=== PATIENT | male | born 1950 | race Caucasian/White ===

== ENCOUNTER 2019-02-01 15:07 | Observation (INO) | payer MEDICARE ==
--- NOTE | 2019-02-01 15:42 | ED ---
Back Pain - HPI Summary HPI Summary: This patient is a 68 year old M presenting to [facility] by EMS transferred from [facility] ED accompanied by his with a chief complaint of worsening right lower back pain since 01/27/19 after lifting a heavy suitcase and dx of paracentral HNP at L4 L5 and mass effect on L5 descending nerve root on MRI in [place]. Pt denies any hx of trauma. On 01/30/19, he could not stand/ ambulate and when he stands pain shoots down his leg. Pt reports right leg weakness and right foot numbness and tingling. He has had no bowel or bladder incontinence. His pain was unrelieved with bedrest, ibuprofen and use of crutches at home. Pt has PMHx of degenrative disk disease and a bulging disk at L4 L5 (with hx 3 intrathecal injections in 2014 at [facility], and the third one helped), kidney stones, [place], prostate cancer (radiation) 2013, HLD. Pt takes atorvastatin daily and ASA 81mg daily. This pt was transferred via EMS from [place] emergency department by Keira Macias NP after discussion and acceptance by Dr. Eden, and Dr. Crawford, Pt had morphine x 3 in [place] ED without relief. He is transferred for further evaluation and treatment by neurosurgery, Dr. Crawford. Vital signs while in room: HR 61 bpm, BP 135/78, O2 sat 98% Home Medications Medication Instructions Recorded Confirmed Type Aspirin [Ecotrin] 81 mg PO DAILY 02/01/19 02/01/19 History Atorvastatin* [Lipitor 20 MG*] 20 mg PO DAILY 02/01/19 02/01/19 History - History of Current Complaint Chief Complaint: EDBackInjuryPain Stated Complaint: BACK PAIN, NEURO PER EMS Time Seen by Provider: 02/01/19 15:20 Hx Obtained From: Patient, EMS, Other: - Keira Macias NP at [place] ED Onset/Duration: Gradual Onset, Lasting Days, Still Present Onset/Duration: Started Days Ago, Atraumatic, Still Present, Worse Since - Timing: Constant Back Pain Location: Is Discrete @ - rigth lower back Severity Initially: Severe Severity Currently: Severe Pain Intensity: 8 Pain Scale Used: 0-10 Numeric Character: Sharp, Burning Aggravating Symptom(s): Movement, Lifting, Bending, Walking Alleviating Symptom(s): Rest, OTC Meds, Other - crutches Associated Signs And Symptoms: Positive: Weakness, Numbness, Tingling, Pain with Weight Bearing. Negative: Bladder Incontinence, Bowel Incontinence - Allergies/Home Medications Allergies/Adverse Reactions: Allergies Allergy/AdvReac Type Severity Reaction Status Date / Time No Known Allergies Allergy Verified 02/01/19 15:13 Home Medications: Home Medications Aspirin [Ecotrin] 81 mg PO DAILY 02/01/19 [History Confirmed 02/01/19] Atorvastatin* [Lipitor 20 MG*] 20 mg PO DAILY 02/01/19 [History Confirmed ] PMH/Surg Hx/FS Hx/Imm Hx Previously Healthy: No Cardiovascular History: Reports: Hx Hypercholesterolemia, Hx Myocardial Infarction - [facility] in [place] 2015 History: Reports: Hx Kidney Stones, Other Problems/Disorders - prostate CA Musculoskeletal History: Reports: Hx Back Problems - s/p intrathecal injections 2014 at [facility] History: Denies: Hx Deafness - Cancer History Cancer Type, Location and Year: prostate cancer, 2013 Hx Radiation Therapy: Yes - Surgical History Surgical History: Yes Surgery Procedure, Year, and Place: cardiac stent, February 2016 Infectious Disease History: No Infectious Disease History: Denies: Traveled Outside the [place] in Last 30 Days - Family History Known Family History: Positive: Cardiac Disease - Social History Lives: With Family Alcohol Use: None Substance Use Type: Reports: None Hx Tobacco Use: No Smoking Status (MU): Never Smoked Tobacco Review of Systems Constitutional: Negative Cardiovascular: Negative Respiratory: Negative Gastrointestinal: Negative Negative: incontinence Positive: Other - Pos - low back pain, right leg pain Positive: Weakness - right leg, Paresthesia - right foot , Numbness - right foot Psychological: Normal All Other Systems Reviewed And Are Negative: Yes Physical Exam - Summary Physical Exam Summary: Appearance: well-appearing, severe pain distress, well-nourished Skin: Warm, color reflects adequate perfusion, dry Head: Normal Head/Face inspection, atraumatic Eyes: Conjunctiva clear ENT: Normal inspection Neck: Supple, no nodes, no JVD, no spinal tenderness Respiratory: Lungs clear, normal breath sounds, no respiratory distress Cardio: RRR, No murmur, pulses normal, brisk capillary refill Abdomen: Soft, nontender Bowel sounds: Present Musculoskeletal: Strength Intact except right leg/ROM intact, no calf tenderness , no edema, diffuse low lumbar spinal and paraspinal tenderness, no thoracic spine tenderness Psychological: Normal Neuro: Alert, muscle tone normal, Motor 5/5 except + positive straight leg raise on right and 4/5 right leg weakness due to pain, absent patella reflex on the right; sensation intact to light touch, antalgic gait, right foot dorsiflexion 4/5 Triage Information Reviewed: Yes Vital Signs On Initial Exam: Initial Vitals Temp Pulse Resp BP Pulse Ox 97.8 F 61 18 135/78 98 02/01/19 15:10 02/01/19 15:10 02/01/19 15:10 02/01/19 15:10 02/01/19 15:10 Vital Signs Reviewed: Yes Diagnostics - Vital Signs Vital Signs Temp Pulse Resp BP Pulse Ox 02/01/19 15:10 97.8 F 61 18 135/78 98 - Laboratory Result Diagrams: 02/01/19 15:49 02/01/19 15:49 Lab Statement: Any lab studies that have been ordered have been reviewed, and results considered in the medical decision making process. - Radiology Lumbar Spine X-Ray Radiology Interpretation Completed By: Radiologist Summary of Radiographic Findings: Lumbar Spine X-Ray, per radiologist, reveals, IMPRESSION: Spondylosis L2-L3 and L5-S1 levels. ED physician has reviewed this radiology report. - EKG 1532 Cardiac Rate: Bradycardia - 57 bpm EKG Rhythm: Sinus Bradycardia ST Segment: Non-Specific Ectopy: None EKG Comparison: Other - no prior to compare Summary of EKG Findings: An EKG at 15:32 reveals sinus bradycardia 57 bpm, nml AV/IV CT, nml,QTc, left axis (-40), peaked T-waves in V2-V5, no acute changes. Re-Evaluation - Re-Evaluation First Eval Re-Evaluation Time: 17:51 Change: Improved Comment: Pain is diminished and he agrees to admission. He had a [place] at [facility] in [place]; [address] feb 2016, he had a stress test in August and everything was okay. Back Pain Course/Dx - Course Course Of Treatment: 68 yo M with hx [place] and stent placed in left main artery, prostate CA Rx with radiation and hx DDD s/p prior intrathecal injections is transferred from [facility] for further neurosurgical evaluation and Rx for lumbar back pain, right foot numbness and right leg weakness and inability to stand and walk x 3 days no trauma but after lifting a suitcase, and MRI that showed HNP at L4-L5 with mass effect on L5 nerve root. Pt is without incontinence. Pt had no relief with morphine x 3 in [place] ED. Physical exam findings are pt in severe pain distress, + straignt left raise on right, 4/5 weakness right leg due to pain, decreased patella reflex on right, 4/5 dorsiflexion of foot on right, diffuse low back pain with no other spinal tenderness. Blood work obtained and is unremarkable except for Total Bilirubin is 2.70, and Total protein of 6.3. UA obtained and shows 2+ ketones, and 2+ microscopic blood. An EKG at 15:32 reveals sinus bradycardia 57 bpm, nml AV/IV CT, nml,QTc, left axis (-40), peaked T-waves in V2-V5 with no acute changes, and no prior to compare. Lumbar Spine X-Ray flexion and extension views requested by Dr. Crawford, per radiologist, reveals,. IMPRESSION: Spondylosis L2-L3 and L5-S1 levels. ED physician has reviewed this radiology report. Pt medications reviewed this visit. Nurses notes reviewed. Allergies noted. In the ED course the patient was given Dilaudid 1mg IV, and Zofran and percocet 5/325mg with some relief. Upon re-evaluation pain is diminished and he agrees to admission. Clarifying PMH of NY: He had a [place] at [facility] in [place]; [address] feb 2016, he had a stress test in August, and everything was okay. 15:[address] Crawford. He will consult, with hospitalist to admit for pain control. The patient and his are agreeable with this plan. - Diagnoses Differential Diagnosis/HQI/PQRI: Positive: Cauda Equina Syndrome, Herniated Disc , Strain Provider Diagnoses: Herniation of nucleus pulposus, Right leg weakness, Difficulty walking, Hyperbilirubinemia, Lumbosacral radiculopathy at L4 - Provider Notifications Discussed Care Of Patient With: Angelina Crawford Time Discussed With Above Provider: 15:43 Instructed by Provider To: Other - Discussed case with Dr. Crawford, who will consult, and hospitalist will admit for pain control. Discharge ED - Sign-Out/Discharge Documenting (check all that apply): Patient Departure - Admit All imaging exams completed and their final reports reviewed: Yes Patient Received Moderate/Deep Sedation with Procedure: No - Discharge Plan Condition: Stable Disposition: ADMITTED TO [facility] - Billing Disposition and Condition Condition: STABLE Disposition: Admitted to [facility] - Attestation Statements Document Initiated by Scribe: Yes Documenting Scribe: Marylu Mccormack Provider For Whom Arabella is Documenting (Include Credential): Dr. Tessa Eden MD Scribe Attestation: Marylu Mantilla scribed for Dr. Tessa Eden MD on 03/06/19 at 1232. Scribe Documentation Reviewed: Yes Provider Attestation: The documentation as recorded by the scribeMarylu accurately reflects the service I personally performed and the decisions made by me, Dr. Tessa Eden MD Status of Scribe Document: Viewed
[2019-02-01] MEDS ORDERED: HYDROmorphone INJ1* 1 MG/ML SYRINGE IV ONE (15:46)
[2019-02-01] MEDS ORDERED: Ondansetron INJ* 2 MG/ML VIAL IV ONE (15:48)
[2019-02-01 16:40] LABS: ABS Monocytes 0.8 10^3/ul (0-0.8); Eosinophil % 0.2 %; Hematocrit 46 % (42-52); Hemoglobin 15.5 g/dL (14.0-18.0); Lymphocyte % 13.1 %; Mean Corpuscular HGB Conc 33 g/dL (31-36); Mean Corpuscular Hemoglobin 28 pg (27-31); Mean Corpuscular Volume 85 fL (80-94); Mean Platelet Volume 7.5 fL (7.4-10.4); Nucleated Red Blood Cells % 0.1; Platelet Count 199 10^3/uL (150-450); Red Blood Count 5.47 10^6 /uL (4.18-5.48); Red Cell Distribution Width 14 % (10-15); White Blood Count 7.9 10^3/uL (3.5-10.8)
[2019-02-01 16:54] LABS: Albumin 3.8 g/dL (3.2-5.2); Albumin/Globulin Ratio 1.5 (1-3); BUN/Creatinine Ratio 21.8 (8-20); C Reactive Protein 2.56 mg/L (<8.01); Calcium 9.4 mg/dL (8.6-10.3); EGFR African American 80.8 (>60); EGFR Non-African American 66.8 (>60); Globulin 2.5 g/dL (2-4); Potassium 3.8 mmol/L (3.5-5.0); Total Bilirubin 2.7 mg/dL (0.2-1.0); Total Protein 6.3 g/dL (6.4-8.9)
[2019-02-01 17:19] LABS: INR 0.99 (0.82-1.09)
[2019-02-01] MEDS ORDERED: oxyCODONE/Acetamin 5/325 MG* TAB PO ONE (17:55)
[2019-02-01] MEDS ORDERED: Ondansetron INJ* 2 MG/ML VIAL IV PRN (18:17)
[2019-02-01] MEDS ORDERED: Morphine INJ* 2 MG/ML 1 ML SYRINGE (TWO MG - NEW SYRINGE VERSION) IV PRN (18:17)
[2019-02-01] MEDS ORDERED: oxyCODONE/Acetamin 5/325 MG* TAB PO PRN (18:17)
[2019-02-01] MEDS ORDERED: HYDROmorphone INJ* 0.5 MG/0.5 ML SYRINGE IV SLOW PU PRN (18:20)
--- NOTE | 2019-02-01 20:34 | HP ---
CC: Dr. Renee; Dr. Cornejo * HISTORY AND PHYSICAL: DATE OF ADMISSION: 02/01/19 PRIMARY CARE PROVIDER: Dr. Renee. DOUBLE NEEDLE STITCHER: Dr. Cornejo. ATTENDING PHYSICIAN: Dr. Avila * (dictated by CASPER Ferrear). CHIEF COMPLAINT: Low back pain. HISTORY OF PRESENT ILLNESS: Mr. Belle is a 68-year-old male with a past medical history of CAD, hyperlipidemia, lumbar degenerative disk disease, who presented to [facility] with low back pain and was [facility]. The patient relates past medical history of degenerative disk disease discovered in 2014, for which he failed PT and then received intrathecal injections x3. The third helped and he has been well since until approximately 5 days ago. He states he was lifting heavy suitcase full of clothes from the floor and felt a sharp pain travel up his back. This dissipated and turned into a constant dull pain. It progressively worsened until approximately 2 days later when the pain became so bad that it was difficult for him to walk, stand or sit. He prescribed to bed rest for approximately 2 days and notes that this did not help and in fact he worsened. He states the pain is in the right hip across the lower back and radiates down the posterior thigh to the toes. He notes it is worse with sitting, standing. It is painful with walking. He has been requiring the use of crutches to walk due to weakness and pain. He has used ibuprofen, which has not help. He attempted bed rest, which worsened the problem. He complains of dull pain currently rated at 6 to 7/10. It becomes sharp with movement. He notes he has not had a bowel movement since Wednesday, but denies incontinence of bowel or bladder function. He denies saddle anesthesia. He does note that the right foot is numb and tingling, but denies numbness and tingling elsewhere. He does have right lower extremity weakness. He denies myalgias, arthralgias. While in the emergency department, the patient received a full workup, which included laboratory data that was without gross abnormality except for total bilirubin of 2.7. Lumbar spine x-ray revealed spondylosis L2-L3, L5-S1. The patient had an MRI in [place], which revealed HNP, L4-L5 with moderate spinal and right foraminal stenosis, mass effect at descending L5 nerve root on right. The patient was given Dilaudid 1 mg and ondansetron 4 mg. Hospitalist team was asked to evaluate the patient for admission. PAST MEDICAL HISTORY: 1. Coronary artery disease with stent placement in 2016. 2. Hyperlipidemia. 3. Degenerative disk disease, lumbar spine. 4. History of prostate cancer, status post radiation in 2013. 5. History of nephrolithiasis. PAST SURGICAL HISTORY: Lithotripsy, surgical nephrolithiasis removal, deviated septum repair, and cardiac stent in 2016. HOME MEDICATIONS: 1. Atorvastatin 20 mg p.o. daily. 2. Aspirin 81 mg p.o. daily. DRUG ALLERGIES: No known drug allergies. FAMILY HISTORY: Maternal grandfather at age of 64 from [place]. Mother had hypertension and had a pacemaker, at the age of 92. Father was relatively healthy. No family history of diabetes, CVA, cancer. SOCIAL HISTORY: The patient denies current and former use of tobacco. He drinks very rarely, uses alcohol 1 to 2 times per year. He does not use any illicit drugs. 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. He is . He has 2 boys who live outside of the house. He lives with his . In the event that he is unable to make his own medical decisions, he has appointed his , Loretta Belle, to be his surrogate decision maker. REVIEW OF SYSTEMS: A 14-point review of systems has been performed and all the pertinent positives and negatives are in the HPI. All other systems are negative. PHYSICAL EXAMINATION GENERAL: Mr. Belle is a well-developed, well-nourished, slightly overweight, older white gentleman, who is lying in bed with the head of bed partly elevated. He appears to be in no acute distress until he moves, then he appears to be uncomfortable. He moves very slowly. VITAL SIGNS: Temperature 97.8 temporal, heart rate 65, respiratory rate 18, oxygen saturation 98% on room air, blood pressure 141/68. HEENT: Visual swartz grossly intact. PERRL. EOMI. Nonicteric sclerae. Hearing grossly intact. Oral mucous membranes are moist without lesions. The pharynx is clear. Tongue is at midline. RESPIRATORY: Symmetrical chest expansion without use of accessory muscles. Lungs are clear to auscultation bilaterally without rhonchi, wheezes or rales. There is no digital clubbing or cyanosis. CARDIOVASCULAR: Regular rate and rhythm with S1, S2 present without murmurs, rubs, clicks or gallops. There is no JVD. There is no peripheral edema. Radial and pedal pulses are palpable. ABDOMEN: Flat. Bowel sounds noted in all quadrants. The abdomen is soft. There is no tenderness to palpation. Negative Wall sign. No hepatosplenomegaly. MUSCULOSKELETAL: Nontender to palpation along the entire length of the spine. Bilateral upper extremities with 5/5 strength, equal marine cargo surveyor strength. Sensation intact. Left lower extremity 5/5 strength with sensation intact. Pain with straight leg raise at approximately 25 degrees. Right lower extremity, the patient is unable to lift leg off bed due to pain. Sensation is intact. He is able to bend the knee, hip, and wiggle the toes. NEURO: The patient is awake. He is alert and oriented x3 with cranial nerves grossly intact. He is able to move all of his extremities, although the right lower extremity is significantly weak with no strength against gravity. DIAGNOSTIC STUDIES/LAB DATA: CBC within normal limits. CMP, total bilirubin 2.7. MRI of the L-spine was performed in [place] and reveals herniated nucleus pulposus, L4-L5 with moderate spinal and right foraminal stenosis with mass effect upon descending L5 nerve root on the right. Lumbar spine x-ray reveals spondylosis L2-L3, L5-S1. ASSESSMENT AND PLAN: Mr. Belle is a 68-year-old male with a past medical history of coronary artery disease with stent placement in 2016, hyperlipidemia , degenerative disk disease of the lumbar spine, who presented from [place] after MRI imaging revealed herniated nucleus pulposus. He will be admitted observation for: 1. Herniated nucleus pulposus, L4-L5. The patient continues to have back pain x5 days, which has improved somewhat with pain medication in the ER, but not with any other conservative treatment. He is noted to have HNP L4-L5 on MRI of the L spine from [place]. He will be admitted. Dr. Crawford has been consulted for further recommendations. Physical Therapy and Occupational Therapy have been ordered. We will continue pain management, anti-nausea medications and bowel regimen. Dr. Crawford plans for possible surgical intervention tomorrow. We will start steroids today. 2. Coronary artery disease. The patient had stent placement in 2015. He states his last stress test was August 2018 and it was negative. We will request the records from Dr. Cornejo. Continue home medications aspirin and atorvastatin. 3. Hyperlipidemia. Continue atorvastatin. 4. DVT prophylaxis. According to the DVT Risk Assessment, the patient scores 3 , placing him at high risk. He will be started on SCDs. At this point we will hold off on chemoprophylaxis due to possible surgical intervention. 6. Code status. Full code. TIME SPENT: Approximately 60 minutes was spent on this admission, greater than half that time was spent [id number] with the patient and his obtaining history, performing physical, and reviewing the plan of care. The case has been reviewed with my attending Dr. Avila, who is in agreement with the plan of care. CASPER AMARAL [id number]/[facility] #: [id number] ROSALINA
--- NOTE | 2019-02-01 20:43 | CONS ---
CONSULTATION REPORT: DATE OF CONSULT: 02/01/19 HISTORY OF PRESENT ILLNESS: This is a 68-year-old male with complaint of acute bilateral axial low back pain with right lower extremity radicular pain x3 days. He has medical history significant for prostate cancer in 2013 and renal stones in 2014. His pain was aggravated back by lifting a suitcase 3 days ago. He has had constant low back pain with right lower extremity radicular pain. His radicular pain radiates down the back of his leg extended to his foot and is increased with standing and walking. Currently, the patient is unable to stand. He was seen earlier in the [facility] ER for his symptoms and was treated with some morphine, but pain was not controlled with medication. Keira Macias , nurse practitioner from the ER called the neurosurgery office and gave sign out about the patient and requested to have the patient transferred over to the ED at [facility]. The patient came in, he completed an MRI of the lumbar spine, which showed a large herniated disk at L4-L5 compressing the right transverse nerve root at that level. The patient denies any issues with loss of control of bladder or bowel. Has noticed increased weakness in the right leg secondary to pain. Neurosurgery was consulted to evaluate the patient for possible surgical intervention. PAST MEDICAL HISTORY: As stated, prostate cancer in 2013, renal stones in 2014. Denies history of high blood pressure, high cholesterol, or pulmonary embolism or DVT. PAST SURGICAL HISTORY: Cardiac stent placement in February 2016. MEDICATIONS: 1. Atorvastatin 20 mg. 2. Aspirin 81 mg. SOCIAL HISTORY: Denies tobacco use. Denies alcohol use. Denies drug abuse. 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 Lives at home with his . OBJECTIVE: Vitals: Pulse rate 65 to 66, respiration rate 18, O2 saturation 96 % to 98% on room air, blood pressure is 145/75. Physical Exam: The patient is lying flat, comfortable with no acute distress. His demeanor is calm, relaxed. Neuro Exam: The patient's GCS is 15, alert and oriented x3. EOMs intact. Pupils are equal in size. Upper extremity motor strength 5/5 bilaterally with elbow flexion, extension, also with shoulder abduction, adduction. Handgrip strength is 5/5. Negative for Stephens's.Upper extremity muscle strength intact , 5/5. Decreased right lower extremity motor strength secondary to pain, 3/5, the patient is unable to hold his leg up to gravity. He has positive straight leg raise test on the right in the prone position. EHL is intact 5/5 bilaterally. Left lower extremity motor strength 5/5 with hip flexion, extension. Negative for Babinski's or clonus. Sensation is intact throughout. ASSESSMENT: This is a 68-year-old male with acute axial low back pain with right lower extremity radicular pain x3 days, has herniated disk at L4-L5 compressing the right exiting nerve roots and transverse nerve root, which is consistent with the patient's complaint. The patient has right lower extremity weakness possibly secondary to pain, is unable to lift or hold his leg up to gravity. He has motor strength of 3/5. Otherwise, the patient is neurologically intact. PLAN: At this time, the patient will be admitted to Medicine for pain control. If his pain is well controlled, we will see the patient on an outpatient basis and discuss surgical intervention. If not, we will consider adding the patient on to schedule for tomorrow for a surgical intervention, possibly microdiskectomy at L4- L5. We will reevaluate the patient in the morning. CASPER STILL [id number]/[facility] #: [id number] ROSALINA
[2019-02-01] MEDS ORDERED: Atorvastatin* 20 MG TAB PO SCH (21:00)
[2019-02-01] MEDS: methylPREDNISolone 125 MG* 2 ML VIAL IV SCH (22:01)
[2019-02-01 23:03] LABS: Urine Appearance Clear; Urine Bacteria Absent (Absent); Urine Bilirubin Negative (Negative); Urine Blood 2+ (Negative); Urine Color Yellow; Urine Glucose Negative (Negative); Urine Ketones 1+ (Negative); Urine Nitrite Negative (Negative); Urine Protein Negative (Negative); Urine Red Blood Cell Trace(0-2/hpf) (Absent); Urine Squamous Epithelial Cell Present (Absent); Urine Urobilinogen Negative (Negative); Urine White Blood Cell Trace(0-5/hpf) (Absent)
--- NOTE | 2019-02-01 23:38 | CONS ---
CONSULTATION REPORT: ADDENDUM: DATE OF CONSULT: 02/01/19 HISTORY OF PRESENT ILLNESS: The initial consultation was dictated by Milton Martínez, our surgical PA. The patient was seen and examined today. The patient is a very pleasant 68-year-old gentleman who was transferred from [facility] with past medical history significant for prostate cancer in 2013 and renal stones in 2014. The patient has a history also for chronic back issues and had undergone epidural steroid injections in 2013. The patient was reported to have abrupt onset of back pain when he was attempting to lift up a suitcase with clothes 3 days ago. The patient started experiencing severe pain radiating to the right lower extremity, tried to deal that with gentle bed rest and pain medication. The patient had difficulty initially ambulating and was using crutches and his ability to ambulate deteriorated to the point that he is not able to walk. For this reason, he was admitted to previous hospital. The patient reports that he has significant back pain radiating to the right lower extremity all the way down to his ankle. He reports that he has weakness in the right lower extremity with numbness in the right lower extremity without tingling. The patient is not able to ambulate. The patient denies any urinary or GI incontinence. 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 He is . He lives with his who accompanies him in his hospital room. For the past medical history, please refer to the Milton Martínez' s dictation. PHYSICAL EXAM: The patient is awake, alert, oriented x3. His pupils are equal and reactive. Cranial nerves II through XII are grossly intact. Motor 4-5/5 in all extremities with the exception of the right lower extremity which is 3 to 4/5 with hip flexion 3 to 4/5. Knee extension 4-/5. Foot dorsiflexion 3-4/5 , EHL 3-4/5 plantar flexion 4-/5. Sensory is grossly intact to light touch. Deep tendon reflexes +1 bilaterally. No clonus. No Babinski. Stephens's negative. Straight leg test positive on the right side in 30 degrees. The patient has no tenderness to palpation of the thoracic and lumbar spine. He has free range of motion of cervical spine. DIAGNOSTIC STUDIES/LAB DATA: The patient had an MRI of his lumbar spine revealing a large disk herniation of the right L4-5 and degenerative changes. PLAN: At this point, we discussed extensively with the patient and his regarding treatment options including conservative treatment approach with pain medication, potential epidural steroid injection versus surgical intervention. Because of the severity of the pain and because the patient in the past had epidural steroid injections without significant amount of relief, the patient would like to proceed with surgical intervention. This is reasonable, as he presents with intractable pain, motor weakness and inability to ambulate. For this reason, we will keep the patient n.p.o. after midnight and we will plan for surgical intervention in the morning provided that he obtains medical clearance. We will plan for right L4-5 diskectomy and possible laminectomy. We discussed in extent risks and benefits of the procedure as well as expectations, limitations, possible complications of the procedure with complications included but not limited to bleeding, infection, risk of injury to adjacent structures, coma, paralysis, , need for additional procedures, stroke, blindness, cancer, instability, spinal fluid leak, injury to the intraabdominal contents, loss of bladder or bowel control, anesthesia risk. The patient understood that his condition may not improve and in fact may get worse after surgery and that he may need to have additional procedures in the future. He knows that he may be considered a candidate for an arthrodesis in the future, if he develops multiple recurrent herniations or if he develops instability. He understands that the operative plan may be modified according to the intraoperative findings and conditions and that the case may be abandoned or done in more than 1 stages. He understands that he may require prolonged ICU stay, tracheostomy or gastrostomy. We will plan for surgical intervention in the morning. Thank you for allowing us to participate in the care of this patient. Please do not hesitate to contact our office in case you have any further questions or concerns regarding the care of this patient. Kodak Crawford MD [id number]/[facility] #: [id number] ROSALINA
[2019-02-02] MEDS ORDERED: HYDROmorphone INJ1* 1 MG/ML SYRINGE IV SLOW PU PRN (08:40)
[2019-02-02] MEDS: methylPREDNISolone 125 MG* 2 ML VIAL IV SCH ×2 (08:44→21:09)
--- NOTE | 2019-02-02 08:52 | PN ---
Subjective Date of Service: 02/02/19 Interval History: patient seen this morning, resting comfortably. No fever or chills, NPO. no distress eager and anxious for the procedure today Past Medical History: Unchanged from Admission Objective Active Medications: Hydromorphone HCl (Dilaudid Inj1s*) 0.5 mg IV SLOW PU Q4H PRN PRN Reason: PAIN - SEVERE Last Admin: 02/02/19 08:44 Dose: 0.5 mg Methylprednisolone Sodium Succinate (Solu-Medrol 125mg *) 60 mg IV Q12H BJORN Last Admin: 02/02/19 08:44 Dose: 60 mg Morphine Sulfate (Morphine Inj (Syringe))*) 2 mg IV Q4H PRN PRN Reason: PAIN - MODERATE Ondansetron HCl (Zofran Inj*) 4 mg IV Q4H PRN PRN Reason: NAUSEA/VOMITING Oxycodone/Acetaminophen (Percocet 5/325 Tab*) 1 tab PO Q4H PRN PRN Reason: Pain- mild Vital Signs - 8 hr 02/02/19 02/02/19 03:27 08:44 Temperature 98.2 F Pulse Rate 79 Respiratory 16 16 Rate Blood Pressure 121/66 (mmHg) O2 Sat by Pulse 97 Oximetry Oxygen Devices in Use Now: None Appearance: awake, alert, no distress Eyes: No Scleral Icterus Ears/Nose/Mouth/Throat: NL Teeth, Lips, Gums, Mucous Membranes Moist Respiratory: Symmetrical Chest Expansion and Respiratory Effort, Clear to Auscultation Cardiovascular: NL Sounds; No Murmurs; No JVD, No Edema Abdominal: NL Sounds; No Tenderness; No Distention Extremities: No Edema Neurological: Alert and Oriented x 3 Result Diagrams: 02/01/19 15:49 02/01/19 15:49 Assess/Plan/Problems-Billing Assessment: 68 y/o male admitted for acute back pain secondary to L4-L5 herniated disck with impingment on his right L4-L5 nerve. Schedule for surgery by neurosurgery today - Patient Problems (1) Lumbosacral radiculopathy at L4 Current Visit: Yes Status: Acute Code(s): M54.17 - RADICULOPATHY, LUMBOSACRAL REGION SNOMED Code(s): 6450975 Comment: - MRI from outside facility revealed L4-L5 radiculopathy with impingement on L4-L5 nerve root right side, associated with clinicaly weakness and parasthesia same side - Neuro surgery input appreciated. 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 - Therefore, the patient is deemed low risk and is medically optimized for the scheduled L4-L5 disectomy and laminectomy with no further work up indicated. I did hold his aspirin and statin till postoperatively. (2) CAD (coronary artery disease) Current Visit: Yes Status: Acute Code(s): I25.10 - ATHSCL HEART DISEASE OF [place] CORONARY ARTERY W/O ANG PCTRS SNOMED Code(s): 32177119 Comment: - Up to date with his cardiology follow up Dr. 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
[2019-02-02] MEDS ORDERED: Atorvastatin* 20 MG TAB PO SCH (09:00)
[2019-02-02] MEDS ORDERED: Aspirin EC TAB* 81 MG TAB.EC PO SCH (09:00)
[2019-02-02] MEDS ORDERED: Buffered Lidocaine 1% SYRIN* 1 ML/SYRINGE INTRADERM ONE (10:07)
[2019-02-02] MEDS ORDERED: Bupivacaine 0.25% SDV PF* 10 ML VIAL INJ ONE (12:05)
[2019-02-02] MEDS ORDERED: Thrombin 5,000 UNITS* 1 APPLIC KIT - topical use - TOPICAL ONE (12:05)
[2019-02-02] MEDS ORDERED: Bacitracin INJECTION* 50,000 UNITS ONE (12:05)
[2019-02-02] MEDS ORDERED: ceFAZolin 2 GM in NS PREMIX(*) 2 GM/100 ML BAG IVPB ONE (12:36)
[2019-02-02] MEDS ORDERED: Sodium Citrate/Citric Acid* 15 ML UDC PO ONE (12:44)
[2019-02-02] MEDS ORDERED: Naloxone* 0.4 MG/ML 1 ML VIAL IV PRN (12:45)
[2019-02-02] MEDS ORDERED: fentaNYL* 50 MCG/ML 2 ML VIAL (100 MCG VIAL) IV PRN (12:45)
[2019-02-02] MEDS ORDERED: Acetaminophen IV 1GM/100ML * 1,000 MG/100 ML VIAL IVPB ONE (12:45)
--- NOTE | 2019-02-02 12:46 | PN ---
Progress Note - Progress Note Date of Service: 02/02/19 Note: Patient seen in preop area this am. No changes oe events ON. Exam stable. Patient presents with presents with intractable pain, motor weakness and inability to ambulate. As we discussed extensively with the patient and his regarding treatment options including conservative treatment approach with pain medication, potential epidural steroid injection versus surgical intervention, the patient would like to proceed with surgical intervention. We will plan for right L4-5 diskectomy and possible laminectomy. We discussed in extent risks and benefits of the procedure as well as expectations, limitations , possible complications of the procedure with complications included but not limited to bleeding, infection, risk of injury to adjacent structures, coma, paralysis, , need for additional procedures, stroke, blindness, cancer, instability, spinal fluid leak, injury to the intraabdominal contents, loss of bladder or bowel control, anesthesia risk. Patient and his are in agreement and informed consent was obtained. The patient understood that his condition may not improve and in fact may get worse after surgery and that he may need to have additional procedures in the future. He knows that he may be considered a candidate for an arthrodesis in the future, if he develops multiple recurrent herniations or if he develops instability. He understands that the operative plan may be modified according to the intraoperative findings and conditions and that the case may be abandoned or done in more than 1 stages. He understands that he may require prolonged ICU stay, tracheostomy or gastrostomy. Kodak Crawford MD
[2019-02-02] MEDS ORDERED: Sodium Citrate/Citric Acid* 15 ML UDC ONE (12:47)
[2019-02-02] MEDS ORDERED: Lidocaine 2% PF * 5 ML VIAL ONE (12:48)
[2019-02-02] MEDS ORDERED: Propofol* 10 MG/ML 20 ML BTL ONE ×2 (12:48→15:26)
[2019-02-02] MEDS ORDERED: Rocuronium* 10 MG/ML VIAL ONE (12:49)
[2019-02-02] MEDS ORDERED: Midazolam* 1 MG/ML 2 ML VIAL (2 MG) ONE (12:50)
[2019-02-02] MEDS ORDERED: fentaNYL* 50 MCG/ML 2 ML VIAL (100 MCG VIAL) ONE ×2 (12:50→14:30)
[2019-02-02] MEDS ORDERED: Bupivacaine 0.25% W/EPI* 10 ML SDV ONE (13:07)
[2019-02-02] MEDS ORDERED: Neostigmine Methylsulfate* 3 MG/3 ML SYRINGE ONE (15:28)
[2019-02-02] MEDS ORDERED: oxyCODONE TAB* 5 MG TAB PO PRN (15:38)
[2019-02-02] MEDS ORDERED: Magnesium Hydroxide LIQ* 30 ML UDC PO PRN (15:38)
[2019-02-02] MEDS ORDERED: Lactated Ringers 1000 ML Bag* 1,000 ML IV SCH (16:00)
[2019-02-02] MEDS ORDERED: Ondansetron INJ* 2 MG/ML VIAL ONE (17:13)
[2019-02-02] MEDS ORDERED: Cyclobenzaprine TAB* 10 MG PO PRN (18:38)
--- NOTE | 2019-02-02 21:08 | OP ---
DATE OF SURGERY: 02/02/19 - ROOM #334 DATE OF : 52 SURGEON: Angelina Crawford MD WEAVING MACHINE OPERATOR: Milton Martínez, Surgical PA. The case was done with assistance of surgical PA because of the complexity of the case. ANESTHESIA: General. PRE-OP DIAGNOSIS: Right L4-5 herniated nucleus pulposus. POST-OP DIAGNOSIS: Right L4-5 herniated nucleus pulposus. OPERATIVE PROCEDURE: The patient underwent a right minimally invasive L4-5 hemilaminectomy, medial facetectomy, diskectomy, and foraminotomy at L4-5 with operative microscope. ESTIMATED BLOOD LOSS: 20 cc. COMPLICATIONS: None. SUMMARY: The patient is a very pleasant 68-year-old gentleman with a history of heart disease who was transferred from [facility] with complaints of severe intractable back pain radiating to the right lower extremity and inability to walk. The patient had MRI of spine consistent with a very large right L4-5 herniated nucleus pulposus. The patient also offered the option of surgical intervention. After explaining expectations, limitations, possible complications of the procedure as well as treatment options with complications including but not limited to bleeding, infection, risk of injury to adjacent structures, coma, paralysis, , need for additional procedure, anesthesia risk, stroke, blindness, cancer, instability, cancer of disk, loss of bladder or bowel control, injury to intraabdominal contents, anesthesia risks, need for additional procedures, the patient and his understood and were agreeable to proceed with surgery. An informed consent was obtained. The patient understood that his condition may not improve, and in fact may get worse after surgery and that he may need to have additional procedures in the future and that he may require larger operations or prolonged hospitalization, ICU stay, and rehabilitation. The patient understood that there is concern of surgical scar formation as well as postoperative hematoma formation with risk of bladder and bowel control loss. The patient under-stood that the operative plan may be modified according to intraoperative findings and conditions and that the procedure may be abandoned or done in more than 1 stages and that he may require prolonged ICU stay, prolonged ventilation, dependence on the ventilation and need for tracheostomy or gastrostomy. DESCRIPTION OF PROCEDURE: The patient was brought to the operating room, was placed under general anesthesia by the anesthesia team. He was carefully positioned prone on Ganga table in the Hong frame and all bony prominences were meticulously padded. His skin was prepped and draped in a standard fashion. After appropriate surgical pause and patient identification, the L4-5 level was identified with the assistance of intraoperative fluoroscopic imaging. A small right paramedian incision was marked on the skin over the L4- 5 disk space and infiltrated with local anesthetic, Marcaine with epinephrine was used for this procedure. The incision was performed with #10 surgical blade , incision was carried down through the subcutaneous tissue with Bovie cautery. The dorsal fascia was divided with surgical knife and over a series of dilators, the METRx tubular retractor system was introduced into the field. Intraoperative fluoroscopic imaging confirmed appropriate placement of the tubular retractor and correct surgical level. Then, the operative microscope brought into the field. The right hemilamina of L4 as well as the medial L4-5 facet was fully exposed with Bovie cautery and a limited laminotomy and partial medial facetectomy was performed with the use of high-speed drill and Kerrison punches. Ligamentum flavum was gently removed and after defining the lateral border of the thecal sac and the right L5 nerve root, the thecal sac was gently retracted medially exposing a very large disk fragment under the posterior longitudinal ligament. A #15 surgical knife was used to perform a small incision over the posterior longitudinal ligament and a very large disk fragment and several other small disk fragments were retrieved with use of pituitary rongeurs. Significant relief of the pressure was identified and then the nerve root retractor was used to retract medially the thecal sac. A #15 surgical blade was used to incise the unusual bruises and standard diskectomy was performed with a series of pituitary rongeurs. Significant degeneration of the disk space was identified and at the end of diskectomy, foraminotomy was performed at the L5 nerve root. After copious irrigation and confirmation of meticulous hemostasis and meticulous inspection, the tubular retractor was gently removed. Marcaine was used to infiltrate the paraspinal musculature. The wound was then closed by layers with 0 interrupted Vicryl sutures to approximate the dorsal fascia and 2-0 inverted interrupted Vicryl suture to approximate the subcutaneous tissue while the skin was covered with Dermabond. At the end of the procedure, all counts were reported to be correct. The patient remained hemodynamically stable throughout the case. At the end of the procedure, the patient was turned supine, was extubated and was transferred to Recovery in excellent condition. The case was done with the assistance of surgical team because of the complexity of the case. [id number]/[facility] #: [id number] ROSALINA
[2019-02-03 07:37] VITALS: BP 153/78
[2019-02-03] MEDS: methylPREDNISolone 125 MG* 2 ML VIAL IV SCH (08:11)
--- NOTE | 2019-02-03 09:04 | PN ---
Progress Note - Progress Note Date of Service: 02/03/19 SOAP: Subjective: [] 68 y/o male post microdiscetomy at L4/L5 POD #1, patient is doing well he is able to ambulate independently with a walker. He no longer has pain in his right leg, he is able to void and pass flatulence. Overall he is doing well and feels ready to go home. Objective: [] Initial Vitals Pulse Pulse Ox 63 98 02/01/19 15:09 02/01/19 15:09 Physical exam: General: Patient is out walking the hallways with walker without assistance, Mood pleasant. Neuro: GCS 15, A&O x 3, CN II - XII grossly intact, right lower extremity improved patient able to stand and walk. Wound : C/D/I Assessment: 68 y/o male with HNP at L4/L5 s/p microdiscetomy POD # 1 pain has improved patient able to walk and stand without pain, stable and ready for discharge. Plan: Pain control as needed D/c planning
--- NOTE | 2019-02-03 19:20 | DS ---
Amended report to enter cosigning physician. DISCHARGE SUMMARY: DATE OF ADMISSION: 02/01/19 DATE OF DISCHARGE: 02/03/19 ATTENDING PHYSICIAN: Dr. Crawford* (dictated by CASPER Thurston). DIAGNOSIS ON ADMISSION: Herniated nucleus pulposus at L4-L5. DISCHARGE DIAGNOSIS: Herniated nucleus pulposus at L4-L5. CONDITION ON DISCHARGE: Good. PLACE OF DISCHARGE: Home. HOSPITAL COURSE: This patient is a very pleasant 68-year-old gentleman with a history of heart disease who was transferred from [facility] with complaints of severe intractable back pain radiating down his right leg, extremity, and inability to walk. The patient had MRI of the spine consistent with a very large right L4-5 herniated nucleus pulposus. The patient was offered the option of surgical intervention. After explaining the expectations , limitations, possible complications of the procedure as well as treatment options and complications including bleeding, infection, risk of injury in adjacent structures, coma, paralysis, , and additional procedures, the patient consented for surgery. The patient underwent surgery on 02/02/19. He did very well, had no complications. He was sent to short-stay unit for 24-hour observation. The patient did very well, was able to get up and walk with a walker independently, was able to void and pass flatulence with no issues. The patient felt his back pain and leg pain had significantly improved and was stable enough for discharge. Upon discharge, the patient was given instructions. No heavy lifting. No bending or twisting. Also, no driving. Avoid hot tubs and pools. Follow up with primary in 1 week. Follow up with Neurosurgery in 1 week. He was discharged with pain medication. He understood the instructions and will follow up with Neurosurgery in 1 week. Thank you for allowing me to be a part of this patient's care. CASPER STILL [id number]/[facility] #: [id number] MTDD
== END 2019-02-03 11:05 | disposition home or self-care (01) | DRG 520 ==
LOC: ED 15:07 → MED 18:17 → OBSVTOIN 02-02 11:00 → INTOOBSV 02-02 11:00 → SSU 02-02 18:25
PROVIDERS: ADMIT Hospitalist; ATTEND Neurological Surgery
DX: M51.17 Intervertebral disc disorders with radiculopathy, lumbosacral region (principal); I25.10 Atherosclerotic heart disease of native coronary artery without angina pectoris; E78.5 Hyperlipidemia, unspecified; M48.061 Spinal stenosis, lumbar region without neurogenic claudication; E66.3 Overweight; M47.27 Other spondylosis with radiculopathy, lumbosacral region; E80.6 Other disorders of bilirubin metabolism; Z68.24 Body mass index [BMI] 24.0-24.9, adult; Z88.8 Allergy status to other drugs, medicaments and biological substances; Z87.442 Personal history of urinary calculi; Z85.46 Personal history of malignant neoplasm of prostate; I25.2 Old myocardial infarction; Z95.5 Presence of coronary angioplasty implant and graft; Z82.49 Family history of ischemic heart disease and other diseases of the circulatory system; Z79.82 Long term (current) use of aspirin
CPT/HCPCS: 36415; 72114; 76000; 80053; 81003; 81015; 85025; 85610; 86140; 86850; 86900; 86901; 87086; 93005; 99284; A9270-GY; G0378; J0690; J1170; J2250; J2270; J2405; J2704; J2710; J2930; J3010; J3490